=== PATIENT | male | born 1985 | race American Indian/Alaskan Native ===

== ENCOUNTER 2017-09-29 15:47 | Outpatient (CLI) | payer OTHER ==
[2017-09-30 09:11] LABS: HEPATITIS A ANTIBODY IGM Negative (Negative); HEPATITIS B SURFACE ANTIGEN Negative (Negative)
[2017-10-03 09:11] LABS: CHLAMYDIA TRACHOMATIS AMP DNA Negative (Negative)
== END 2017-09-29 20:33 | disposition home or self-care (01) ==
LOC: MLB 15:47
PROVIDERS: ATTEND Family Medicine
DX: Z11.3 Encounter for screening for infections with a predominantly sexual mode of transmission (principal); N34.2 Other urethritis
CPT/HCPCS: 36415; 80074; 86592; 86694; 87491

== ENCOUNTER 2019-07-09 07:56 | Outpatient (CLI) | payer OTHER ==
[2019-07-09 08:59] LABS: BASOPHILS % (AUTO) 0.4 % (0.0-2.0); EOSINOPHILS # (AUTO) 0.1 K/uL (0-0.4); EOSINOPHILS % (AUTO) 1.4 % (0.0-4.0); HEMATOCRIT 45.9 % (36-52); HEMOGLOBIN 15.3 g/dL (12.0-18.0); LYMPHOCYTES # (AUTO) 2.1 K/uL (2.0-11.5); LYMPHOCYTES % (AUTO) 24.8 % (20.5-51.1); MEAN CORPUSCULAR HEMOGLOBIN 28 pg (27-31); MEAN CORPUSCULAR HGB CONC 33 g/dL (33-37); MEAN CORPUSCULAR VOLUME 82.7 fL (80-94); MONOCYTES # (AUTO) 0.6 K/uL (0.8-1.0); MONOCYTES % (AUTO) 6.9 % (1.7-9.3); NEUTROPHILS # (AUTO) 5.5 K/uL (1.8-7.7); NEUTROPHILS % (AUTO) 66.5 % (42.2-75.2); PLATELET COUNT (AUTO) 291 K/uL (140-450); RED BLOOD CELL COUNT(AUTO) 5.55 MIL/uL (4.20-6.10); RED CELL DISTRIBUTION WIDTH 13.1 % (11.6-13.7); WHITE BLOOD COUNT (AUTO) 8.3 K/uL (4.8-10.8)
[2019-07-09 09:55] LABS: ALBUMIN 4.2 g/dL (3.4-5.0); ANION GAP 17.2 (8-16); CARBON DIOXIDE 24.1 mmol/L (21-32); CHOL/HDL RATIO 4.1 (1-4.5); POTASSIUM 4.3 mmol/L (3.5-5.1); THYROID STIMULATING HORMONE 1.09 uIU/mL (0.34-3.74); TOTAL BILIRUBIN 0.5 mg/dL (0.0-1.0)
== END 2019-07-09 21:35 | disposition home or self-care (01) ==
LOC: MLB 07:56
PROVIDERS: ATTEND Family Medicine
DX: I10 Essential (primary) hypertension (principal)
CPT/HCPCS: 36415; 80053; 82306; 84443; 85025

== ENCOUNTER 2019-10-10 12:33 | Outpatient (CLI) | payer OTHER ==
[2019-10-10 14:25] LABS: ALBUMIN 4.4 g/dL (3.4-5.0); ANION GAP 11.9 (8-16); CARBON DIOXIDE 27.9 mmol/L (21-32); POTASSIUM 3.8 mmol/L (3.5-5.1); TOTAL BILIRUBIN 0.6 mg/dL (0.0-1.0)
[2019-10-11 06:12] LABS: HEPATITIS B SURFACE ANTIGEN Negative (Negative); HEPATITIS C VIRUS ANTIBODY <0.1 s/co ratio (0.0-0.9)
== END 2019-10-10 20:25 | disposition home or self-care (01) ==
LOC: MLB 12:33
PROVIDERS: ATTEND Family Medicine
DX: R74.0 Nonspecific elevation of levels of transaminase and lactic acid dehydrogenase [LDH] (principal)
CPT/HCPCS: 36415; 80053; 82977; 86706; 86803; 87340

== ENCOUNTER 2019-10-11 16:16 | Outpatient (CLI) | payer OTHER | END 2019-10-11 18:13 | disposition home or self-care (01) | LOC: MUS 16:16 | PROVIDERS: ATTEND Family Medicine | DX: K76.0 Fatty (change of) liver, not elsewhere classified (principal) | CPT/HCPCS: 76705 ==